=== PATIENT | male | born 1985 | race Caucasian/White ===

== ENCOUNTER 2022-12-03 14:07 | Emergency (ER) | payer SELFPAY ==
[2022-12-03] MEDS ORDERED: CLINDAMYCIN 900MG/D5W 900 MG/50 ML IVPB IV ONE (15:11)
--- NOTE | 2022-12-03 15:39 | ER ---
Nurse's Notes [facility] Name: Jamaal Nguyễn Age: 37 yrs Sex: Male : 1985 Arrival Date: 12/03/2022 Time: 14:09 Bed DIS3 Private MD: Diagnosis: Dental Abscess Presentation: 12/03 14:21 Chief complaint: Patient states: he has had a toothache since Monday that has gotten kc6 worse, with swelling starting on Monday. stated he has been running fever and has a dentist appointment on Monday to have a different one extracted. Coronavirus screen: Vaccine status: Patient reports receiving the 2nd dose of the covid vaccine. At this time, the client does not indicate any symptoms associated with coronavirus-19. Ebola Screen: No symptoms or risks identified at this time. Initial Sepsis Screen: Does the patient meet any 2 criteria? No. Patient's initial sepsis screen is negative. Does the patient have a suspected source of infection? No. Patient's initial sepsis screen is negative. Risk Assessment: Do you want to hurt yourself or someone else? Patient reports no desire to harm self or others. Onset of symptoms was November 28, 2022. 14:21 Method Of Arrival: [facility] 14:21 Acuity: MIREYA 3 kc6 Triage Assessment: 14:23 General: Appears in no apparent distress. comfortable, Behavior is calm, cooperative, kc6 appropriate for age. Pain: Complains of pain in left lower jaw Pain does not radiate. Pain currently is 5 out of 10 on a pain scale. Quality of pain is described as aching, throbbing, Pain began 2-3 days ago. Is continuous, Aggravated by eating, drinking, Also complains of no other associated symptoms. EENT: Reports pain in left lower jaw. Historical: - Allergies: 14:23 No Known Allergies; kc6 - Home Meds: 14:23 Biktarvi [Active]; Lisinopril Oral [Active]; kc6 - PMHx: 14:23 Hypertensive disorder; HIV positive; kc6 - PSHx: 14:23 None; kc6 - Immunization history:: Client reports receiving the 2nd dose of the Covid vaccine, Flu vaccine is not up to date. - Social history:: Smoking status: Patient denies any tobacco usage or history of. Screenin:51 [facility] ED Fall Risk Assessment (Adult) History of falling in the last 3 months, jl7 including since admission No falls in past 3 months (0 pts) Confusion or Disorientation No (0 pts). Abuse screen: Denies threats or abuse. Denies injuries from another. Nutritional screening: No deficits noted. Tuberculosis screening: No symptoms or risk factors identified. Assessment: 15:51 Reassessment: Patient appears in no apparent distress at this time. No changes from jl7 previously documented assessment. Patient and/or family updated on plan of care and expected duration. Pain level reassessed. Vital Signs: 14:21 BP 146 / 94; Pulse 96; Resp 18 S; Temp 97.9(TE); Pulse Ox 98% on R/A; Weight 97.52 kg [facility] (R); Height 5 ft. 9 in. (175.26 cm) (R); Pain 5/10; 15:51 BP 138 / 92; Pulse 93; Resp 15; Temp 97.9(O); Pulse Ox 96% on R/A; jl7 14:21 Body Mass Index 31.75 (97.52 kg, 175.26 cm) [facility] ED Course: 14:09 Patient arrived in ED. am2 14:10 Jason Love PA is PHCP. [facility] 14:10 Alirio Lamas MD is Attending Physician. [facility] 14:23 Triage completed. kc6 14:23 Arm band placed on. kc6 15:02 Raisa Grace, SATYA is Primary Nurse. mb9 15:14 Inserted saline lock: 20 gauge in right forearm, using aseptic technique. em1 15:24 Primary Nurse role handed off by Raisa Grace, SATYA jl7 15:24 Hugo Coleman RN is Primary Nurse. jl7 15:38 Nba Taveras DDS is Referral Physician. jmm 15:43 IV discontinued, intact, bleeding controlled, No redness/swelling at site. Pressure em1 dressing applied. 15:51 Patient has correct armband on for positive identification. jl7 15:51 No provider procedures requiring assistance completed. jl7 15:52 IV discontinued, intact, bleeding controlled, No redness/swelling at site. Pressure jl7 dressing applied. Administered Medications: 15:10 Not Given (Physician Discretion): Clindamycin 600 mg IM once mb9 15:16 Drug: Clindamycin 900 mg Route: IVPB; Infused Over: 30 mins; Site: right forearm; aa5 15:45 Follow up: Response: No adverse reaction; IV Status: Completed infusion jl7 Medication: 15:51 VIS not applicable for this client. jl7 Outcome: 15:39 Discharge ordered by MD. ann 15:51 Discharged to home ambulatory. [facility] 15:51 Condition: stable 15:51 Discharge instructions given to patient, family, Instructed on discharge instructions, follow up and referral plans. medication usage, Demonstrated understanding of instructions, follow-up care, medications, Prescriptions given X 2. 15:53 Patient left the ED. jl7 Signatures: Jason Love PA PA jmm Martinez, Eric em1 Alessandra Roa, RN RN aa5 Hugo Coleman RN RN jl7 Chelsea Blair am2 Natasha Mercer RN RN kc6 Raisa Grace, RN RN mb9 Corrections: (The following items were deleted from the chart) 14:26 14:21 Temp 97.9F Temporal; 97.52 kg Reported; Height 5 ft. 9 in. Reported; BMI: 31.7; kc6 Pain 5/10; kc6
--- NOTE | 2022-12-03 15:39 | EDPHYS ---
Physician Documentation [facility] Name: Jamaal Nguyễn Age: 37 yrs Sex: Male : 1985 Arrival Date: 12/03/2022 Time: 14:09 Bed DIS3 Private MD: ED Physician Alirio Lamas HPI: 12/03 14:37 This 37 yrs old Male presents to ER via Ambulatory with complaints of Toothache, cheek jmm swelling. 14:37 The patient presents with swelling. Onset: The symptoms/episode began/occurred jmm gradually, 2 day(s) ago. Is a 37-year-old male with history of hypertension and HIV that presents emerged part with complaints of swelling to his left cheek. Symptoms began approximately 2 to 3 days ago. Patient states he took leftover antibiotics 1 pill a day with no relief of symptoms. Patient was unable to name the type of antibiotic. Denies fever. Patient has no submandibular pain or swelling. Denies shortness of breath.. Historical: - Allergies: 14:23 No Known Allergies; [facility] - Home Meds: 14:23 Biktarvi [Active]; Lisinopril Oral [Active]; 6 - PMHx: 14:23 Hypertensive disorder; HIV positive; 6 - PSHx: 14:23 None; [facility] - Immunization history:: Client reports receiving the 2nd dose of the Covid vaccine, Flu vaccine is not up to date. - Social history:: Smoking status: Patient denies any tobacco usage or history of. ROS: 14:37 Constitutional: Negative for fever, chills, and weight loss. jm 14:37 ENT: Positive for dental pain. 14:37 All other systems are negative. Exam: 14:37 Constitutional: This is a well developed, well nourished patient who is awake, alert, jmm and in no acute distress. 14:37 Eyes: EOMI, no conjunctival erythema appreciated ENT: Moist Mucus Membranes Neck: Trachea midline, Supple Chest/axilla: Normal chest wall appearance and motion. Cardiovascular: Regular rate and rhythm. No edema appreciated Respiratory: Normal respirations, no respiratory distress appreciated Abdomen/GI: Non distended Back: Normal ROM Skin: General appearance color normal MS/ Extremity: Moves all extremities, no obvious deformities appreciated, no edema noted to the lower extremities Neuro: Awake and alert Psych: Behavior is normal, Mood is normal, Patient is cooperative and pleasant 14:37 Head/face: Noted is swelling, that is moderate, of the left jaw, No submandibular tenderness. Vital Signs: 14:21 BP 146 / 94; Pulse 96; Resp 18 S; Temp 97.9(TE); Pulse Ox 98% on R/A; Weight 97.52 kg kc6 (R); Height 5 ft. 9 in. (175.26 cm) (R); Pain 5/10; 15:51 BP 138 / 92; Pulse 93; Resp 15; Temp 97.9(O); Pulse Ox 96% on R/A; jl7 14:21 Body Mass Index 31.75 (97.52 kg, 175.26 cm) kc6 MDM: 14:37 Patient medically screened. [facility] 15:38 Data reviewed: vital signs, nurses notes. Counseling: I had a detailed discussion with seth the patient and/or guardian regarding: the historical points, exam findings, and any diagnostic results supporting the discharge/admit diagnosis, the need for outpatient follow up, to return to the emergency department if symptoms worsen or persist or if there are any questions or concerns that arise at home. 15:38 ED course: Patient is alert nontoxic in appearance in the ED. I do not Suspect seth Susie's angina. Patient advised to follow-up with oral surgery and otherwise given strict return precautions. Patient understood agrees plan of care.. Administered Medications: 15:10 Not Given (Physician Discretion): Clindamycin 600 mg IM once mb9 15:16 Drug: Clindamycin 900 mg Route: IVPB; Infused Over: 30 mins; Site: right forearm; aa5 15:45 Follow up: Response: No adverse reaction; IV Status: Completed infusion jl7 Disposition: 12/04 15:06 Co-signature as Attending Physician, Alirio Lamas MD. rn Disposition Summary: 12/03/22 15:39 Discharge Ordered Location: Home [facility] Condition: Stable seth Diagnosis - Dental Abscess nerissa Followup: seth - With: Nba Taveras DDS - When: 2 - 3 days - Reason: Recheck today's complaints, Continuance of care, Re-evaluation by your physician Discharge Instructions: - Discharge Summary Sheet seth - Dental Abscess [facility] Forms: - Medication Reconciliation Form [facility] - Thank You Letter [facility] - Antibiotic Education [facility] - Prescription Opioid Use [facility] Prescriptions: - Peridex 0.12 % Mucous Membrane mouthwash - place 15 milliliter by MUCOUS MEMBRANE route 2 times per day after brushing [facility] teeth, swish in mouth for 30 seconds then spit out; 1 bottle; Refills: 0, Product Selection Permitted - Clindamycin HCl 300 mg Oral Capsule - take 1 capsule by ORAL route every 6 hours for 10 days; 40 capsule; Refills: 0, [facility] Product Selection Permitted Signatures: Jason Love PA PA [facility] Alirio Lamas MD MD rn Alessandra Roa RN RN aa5 Natasha Mercer RN RN kc6 Hugo Coleman RN jl7 Raisa Grace RN mb9
[2022-12-03 16:18] VITALS: TEMP 97.9
[2022-12-03 16:24] VITALS: BP 138/92; O2SAT 96
== END 2022-12-03 15:53 | disposition home or self-care (01) ==
LOC: ER 14:07
DX: K04.7 Periapical abscess without sinus (principal); I10 Essential (primary) hypertension; Z21 Asymptomatic human immunodeficiency virus [HIV] infection status
CPT/HCPCS: 96365; 99283

== ENCOUNTER 2024-05-08 23:24 | Emergency (ER) | payer OTHER, SELFPAY ==
[2024-05-09] MEDS ORDERED: HYDROCODONE/APAP 7.5/325 MG TAB ONE (00:38)
--- NOTE | 2024-05-09 01:14 | ER ---
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 Coronavirus screen: At this time, the client does not indicate any symptoms associated with coronavirus-19. Ebola Screen: No symptoms or risks identified at this time. Initial Sepsis Screen: Does the patient meet any 2 criteria? No. Patient's initial sepsis screen is negative. Does the patient have a suspected source of infection? No. Patient's initial sepsis screen is negative. Risk Assessment: Do you want to hurt yourself or someone else? Patient reports no desire to harm self or others. Onset of symptoms was May 08, 2024. 23:37 Method Of Arrival: Ambulatory as6 23:37 Acuity: MIREYA 4 as6 Historical: - Allergies: 23:36 No Known Allergies; as6 - PMHx: 23:36 HIV positive; Hypertensive disorder; as6 - PSHx: 23:36 None; as6 - Immunization history:: Adult Immunizations not up to date. - Infectious Disease History:: Denies. - Social history:: Smoking status: Patient denies any tobacco usage or history of. Screenin/13 00:[address] [facility] ED Fall Risk Assessment (Adult) History of falling in the last 3 months, kd3 including since admission No falls in past 3 months (0 pts) Confusion or Disorientation No (0 pts) Intoxicated or Sedated No (0 pts) Impaired Gait No (0 pts) Mobility Assist Device Used No (0 pt) Altered Elimination No (0 pt) Score/Fall Risk Level 0 - 2 = Low Risk Oriented to surroundings. Abuse screen: Denies threats or abuse. Denies injuries from another. Nutritional screening: No deficits noted. Tuberculosis screening: No symptoms or risk factors identified. Assessment: 00:48 General: Appears in no apparent distress. Behavior is calm, cooperative. Pain: kd3 Complains of pain in face and scalp. Neuro: Level of Consciousness is awake, alert, obeys commands, Oriented to person, place, time, situation. Cardiovascular: Patient's skin is warm and dry. Respiratory: Airway is patent Trachea midline Respiratory effort is even, unlabored, Respiratory pattern is regular, symmetrical. 01:39 General: Appears in no apparent distress. Behavior is calm, cooperative. General: Pt kd3 provided with bilateral wrist splints. . Vital Signs: 05/08 23:36 BP 155 / 100; Pulse 65; Resp 16; Temp 97.2; Pulse Ox 97% ; Weight 88.45 kg; Height 5 as6 ft. 9 in. ; Pain 04/05; 05/09 01:39 BP 125 / 89; Pulse 88; Resp 16; Pulse Ox 99% on R/A; kd3 05/08 23:36 Body Mass Index 28.80 (88.45 kg, 175.26 cm) as6 05/08 23:36 Pain Scale: Adult as6 Maged Coma Score: 05/08 23:59 Eye Response: spontaneous(4). Motor Response: obeys commands(6). Verbal Response: cp oriented(5). Total: 15. ED Course: 23:30 Patient arrived in ED. gm2 23:35 Neeraj Garcia PA is PHCP. cp 23:35 Maury García MD is Attending Physician. cp 23:36 Arm band placed on left wrist. as6 23:38 Triage completed. as6 05/09 00:16 XRAY Wrist LEFT 3 view In Process Unspecified. EDMS 00:16 XRAY Wrist RIGHT 3 view In Process Unspecified. EDMS 00:23 CT Facial Bones W/O Con In Process Unspecified. EDMS 00:26 CT Head Brain wo Cont In Process Unspecified. EDMS 00:35 Lynn Bah, SATYA is Primary Nurse. kd3 00:49 Patient has correct armband on for positive identification. Provided Education on: kd3 Scans . 02:06 No provider procedures requiring assistance completed. Patient did not have IV access kd3 during this emergency room visit. Administered Medications: 00:44 Drug: Hydrocodone-Acetaminophen PO (7.5 mg-325 mg) 1 tabs PO once; RASS on ADMIN: kd3 Combtv4, Very Agttd3, Agttd2, Rstlss1, AlertClm0, Drwsy-1, Lt Sdtn-2, Mod Sdtn-3, Dp Sdtn-4, UnArsble-5 Route: PO; 02:07 Follow up: Response: No adverse reaction; Pain is decreased kd3 Medication: 00:48 VIS not applicable for this client. kd3 Outcome: 01:13 Discharge ordered by . amandeep 02:06 Discharged to home ambulatory, kd3 02:06 Condition: stable 02:06 Discharge instructions given to patient, family, Instructed on discharge instructions, follow up and referral plans. Demonstrated understanding of instructions, follow-up care, medications, Prescriptions given X 1, 02:07 Patient left the ED. kd3 Signatures: Dispatcher [employer] EDMS Neeraj Garcia PA PA cp Slawson, Ashby RN RN as6 Lynn Bah RN RN kd3 Prachi Penaloza 2
--- NOTE | 2024-05-09 01:14 | EDPHYS ---
Physician Documentation [facility] Name: Jamaal Nguyễn Age: 38 yrs Sex: Male : 1985 Arrival Date: 05/08/2024 Time: 23:24 Bed 7 Private MD: ED Physician Maury García HPI: 05/08 23:50 This 38 yrs old Male presents to ER via Ambulatory with complaints of works at [employer] and fell face first, Fall Injury. 23:50 Details of fall: The patient fell and struck a tile surface. Onset: The cp symptoms/episode began/occurred just prior to arrival. 23:50 Associated injuries: The patient sustained injury to the head, contusion, left wrist cp and right wrist, painful injury. Patient reports slip and fall times 2 while at work. Struck face against floor but denies LOC. Historical: - Allergies: 23:36 No Known Allergies; as6 - PMHx: 23:36 HIV positive; Hypertensive disorder; as6 - PSHx: 23:36 None; as6 - Immunization history:: Adult Immunizations not up to date. - Infectious Disease History:: Denies. - Social history:: Smoking status: Patient denies any tobacco usage or history of. ROS: 23:55 Constitutional: HX per HPI cp 23:55 MS/extremity: Positive for pain, of the left wrist and right wrist, Negative for cp decreased range of motion, deformity, paresthesias, 23:55 Neuro: Negative for altered mental status, loss of consciousness, 23:55 All other systems are negative, Exam: 23:59 Constitutional: The patient appears in no acute distress, alert, awake, non-toxic, well cp developed, well nourished, 23:59 Head/face: Noted is abrasion(s), that are mild, swelling, that is mild, of the nose, cp Sinus tenderness, that is mild, is located over the right maxillary sinus and left maxillary sinus, 23:59 Eyes: Periorbital structures: appear normal, Pupils: equal, round, and reactive to light and accomodation, Extraocular movements: intact throughout, Conjunctiva: normal, no exudate, no injection, Lids and lashes: appear normal, bilaterally, 23:59 ENT: External ear(s): are unremarkable, Ear canal(s): are normal, clear, TM's: dullness, bilaterally, Nose: Nasal septum: is midline, no septal hematoma appreciated, bleeding, is not appreciated, Mouth: Lips: moist, Oral mucosa: moist, Posterior pharynx: Airway: no evidence of obstruction, patent, Dental exam: pain, is not appreciated, 23:59 Neck: C-spine: vertebral tenderness, is not appreciated, crepitus, is not appreciated, ROM/movement: pain, is not appreciated, limited range of motion, is not appreciated, nuchal rigidity, is not appreciated, 23:59 Chest/axilla: Inspection: normal, Palpation: is normal, no crepitus, no tenderness, 23:59 Cardiovascular: Rate: normal, 23:59 Respiratory: the patient does not display signs of respiratory distress, Respirations: normal, no use of accessory muscles, no retractions, labored breathing, is not present, Breath sounds: are clear throughout, no decreased breath sounds, no stridor, no wheezing, 23:59 Abdomen/GI: Inspection: abdomen appears normal, Palpation: abdomen is soft and non-tender, in all quadrants, 23:59 Back: pain, is absent, no vertebral tenderness noted, 23:59 Musculoskeletal/extremity: Extremities: grossly normal except: noted in the left wrist and right wrist: tenderness, mild swelling, no deformities and no restriction of AROM, the right hand and left hand Sensation intact. 23:59 Neuro: Orientation: to person, place \T\ time. Mentation: is normal, Vital Signs: 23:36 BP 155 / 100; Pulse 65; Resp 16; Temp 97.2; Pulse Ox 97% ; Weight 88.45 kg; Height 5 as6 ft. 9 in. ; Pain /; 05/09 01:39 BP 125 / 89; Pulse 88; Resp 16; Pulse Ox 99% on R/A; kd3 05/08 23:36 Body Mass Index 28.80 (88.45 kg, 175.26 cm) as6 05/08 23:36 Pain Scale: Adult as6 Maged Coma Score: 05/08 23:59 Eye Response: spontaneous(4). Motor Response: obeys commands(6). Verbal Response: cp oriented(5). Total: 15. MDM: 23:41 Patient medically screened. cp 05/09 00:00 Differential diagnosis: closed head injury, contusion, fracture, multiple trauma, cp sprain. 01:13 Data reviewed: vital signs, nurses notes, radiologic studies, CT scan, plain films, and cp as a result, I will discharge patient. 01:13 I considered the following discharge prescriptions or medication management in the cp emergency department Medications were administered in the Emergency Department. See MAR. Counseling: I had a detailed discussion with the patient and/or guardian regarding the historical points, exam findings, and any diagnostic results supporting the discharge/admit diagnosis, radiology results, the need for outpatient follow up, a family practitioner, to return to the emergency department if symptoms worsen or persist or if there are any questions or concerns that arise at home. Response to treatment: the patient's symptoms have mildly improved after treatment, and as a result, I will discharge patient. 05/09 00:00 Order name: XRAY Wrist LEFT 3 view cp 05/09 00:00 Order name: XRAY Wrist RIGHT 3 view cp 05/09 00:00 Order name: CT Facial Bones W/O Con cp 05/09 00:00 Order name: CT Head Brain wo Cont cp 05/09 01:12 Order name: Wrist Splint: left and right splints; Complete Time: 01:39 cp Administered Medications: 00:44 Drug: Hydrocodone-Acetaminophen PO (7.5 mg-325 mg) 1 tabs PO once; RASS on ADMIN: kd3 Combtv4, Very Agttd3, Agttd2, Rstlss1, AlertClm0, Drwsy-1, Lt Sdtn-2, Mod Sdtn-3, Dp Sdtn-4, UnArsble-5 Route: PO; 02:07 Follow up: Response: No adverse reaction; Pain is decreased kd3 Disposition Summary: 05/09/24 01:13 Discharge Ordered Notes: Location: Home cp Problem: new cp Symptoms: have improved cp Condition: Stable cp Diagnosis - Fall on same level, unspecified cp - Pain in right wrist cp - Pain in left wrist cp - Unspecified injury of head, initial encounter cp Followup: cp - With: Private Physician - When: 2 - 3 days - Reason: Recheck today's complaints Discharge Instructions: - Discharge Summary Sheet cp - Head Injury, Adult cp - Wrist Pain, Adult cp - Form - Excuse from Work, School, or Physical Activity cp Forms: - Medication Reconciliation Form cp - Antibiotic Education cp - Prescription Opioid Use cp - Patient Portal Instructions cp - Leadership Thank You Letter cp Prescriptions: - Ibuprofen 800 mg Oral Tablet - take 1 tablet ORAL route every 8 hours As needed take with food; 30 tablet; cp Refills: 0, Product Selection Permitted Addendum: 05/10/2024 03:48 Co-signature as Attending Physician, Maury García MD I agree with the assessment s p4 and plan of care. I reviewed the patient's care provided by the Advanced Practice Provider and agree with the diagnosis and treatment plan. Signatures: Dispatcher [employer] EDMS Neeraj Garcia PA PA cp Slawson, Ashby, RN RN as6 Lynn Bah RN RN kd3 Maury Gracía MD MD sp4 Corrections: (The following items were deleted from the chart) 05/09 00:01 00:01 Wrist Right 3 View+RAD.RAD.BRZ ordered. EDMS EDMS 00:01 00:01 Facial Bones W/ MPR+CT.RAD.BRZ ordered. EDMS EDMS 00:01 00:01 Head Brain Wo Cont+CT.RAD.BRZ ordered. EDMS EDMS
--- NOTE | 2024-05-10 06:27 | RAD REPORT ---
EXAM DESCRIPTION: CT - Facial Bones W/ Mpr - 05/09/2024 7:10 am CLINICAL HISTORY: Male, 38 years old, fall COMPARISON: None. TECHNIQUE: CT acquisition of the head and face without contrast. Coronal and sagittal reformats prov ided. This exam was performed according to departmental dose-optimization program which includes auto mated exposure control, adjustment of the mA and/or kV according to patient size, and/or use of itera tive reconstruction technique. FINDINGS: SUPPORTIVE DEVICES: None. HEAD: Brain: No evidence of hemorrhage, mass effect, or cerebral edema. CSF Spaces: Normal size and morphology. Incidental cavum septum pellucidum. Skull: The calvarium is intact. Soft tissue: Tiny right Midline occipital scalp hematoma suspected. FACE: Bones: Intact. Soft tissues: Normal. Orbits: The globes and orbits are unremarkable. Sinuses/Mastoids: Trace left maxillary mucosal thickening. Oral cavity: All maxillary and multiple mandibular teeth are absent. Several large carious lesions of residual mandibular teeth. Other: The imaged cervical spine is intact. IMPRESSION: 1. No acute intracranial abnormality. 2. No acute facial bone fracture. 3. Severe odontogenic disease. Electronically signed by: Panchito Aguirre MD 05/09/2024 12:54 AM CDT RP Due to temporary technical issues with the PACS/Fluency reporting system, reports are being signed by the in house radiologists without review as a courtesy to insure prompt reporting. The interpreting radiologist is fully responsible for the content of the report.
--- NOTE | 2024-05-10 07:00 | RAD REPORT ---
EXAM DESCRIPTION: RAD - Wrist Right 3 View - 05/09/2024 12:15 am CLINICAL HISTORY: Male, 38 years old, fall;Pain TECHNIQUE: 3 views of each wrist COMPARISON: None. FINDINGS: No acute fracture or dislocation. Normal osseous mineralization. No significant degenerati ve change. Mild left carpal bossing. Unremarkable soft tissues. IMPRESSION: No acute osseous finding of the wrists. Electronically signed by: Panchito Aguirre MD 05/09/2024 12:51 AM CDT RP Due to temporary technical issues with the PACS/Fluency reporting system, reports are being signed by the in house radiologists without review as a courtesy to insure prompt reporting. The interpreting radiologist is fully responsible for the content of the report.
--- NOTE | 2024-05-10 07:02 | RAD REPORT ---
EXAM DESCRIPTION: RAD - Wrist Left 3 View - 05/09/2024 12:15 am CLINICAL HISTORY: Male, 38 years old, fall;Pain TECHNIQUE: 3 views of each wrist COMPARISON: None. FINDINGS: No acute fracture or dislocation. Normal osseous mineralization. No significant degenerati ve change. Mild left carpal bossing. Unremarkable soft tissues. IMPRESSION: No acute osseous finding of the wrists. Electronically signed by: Panchito Aguirre MD 05/09/2024 12:51 AM CDT RP Due to temporary technical issues with the PACS/Fluency reporting system, reports are being signed by the in house radiologists without review as a courtesy to insure prompt reporting. The interpreting radiologist is fully responsible for the content of the report.
--- NOTE | 2024-05-10 07:04 | RAD REPORT ---
EXAM DESCRIPTION: CT - Head Brain Wo Cont - 05/09/2024 7:09 am CLINICAL HISTORY: Male, 38 years old, fall COMPARISON: None. TECHNIQUE: CT acquisition of the head and face without contrast. Coronal and sagittal reformats prov ided. This exam was performed according to departmental dose-optimization program which includes auto mated exposure control, adjustment of the mA and/or kV according to patient size, and/or use of itera tive reconstruction technique. FINDINGS: SUPPORTIVE DEVICES: None. HEAD: Brain: No evidence of hemorrhage, mass effect, or cerebral edema. CSF Spaces: Normal size and morphology. Incidental cavum septum pellucidum. Skull: The calvarium is intact. Soft tissue: Tiny right Midline occipital scalp hematoma suspected. FACE: Bones: Intact. Soft tissues: Normal. Orbits: The globes and orbits are unremarkable. Sinuses/Mastoids: Trace left maxillary mucosal thickening. Oral cavity: All maxillary and multiple mandibular teeth are absent. Several large carious lesions of residual mandibular teeth. Other: The imaged cervical spine is intact. IMPRESSION: 1. No acute intracranial abnormality. 2. No acute facial bone fracture. 3. Severe odontogenic disease. Electronically signed by: Panchito Aguirre MD 05/09/2024 12:54 AM CDT RP Due to temporary technical issues with the PACS/Fluency reporting system, reports are being signed by the in house radiologists without review as a courtesy to insure prompt reporting. The interpreting radiologist is fully responsible for the content of the report.
== END 2024-05-09 02:07 | disposition home or self-care (01) ==
LOC: ER 23:24
DX: S00.83XA Contusion of other part of head, initial encounter (principal); M25.532 Pain in left wrist; M25.531 Pain in right wrist; W18.30XA Fall on same level, unspecified, initial encounter; Y92.512 Supermarket, store or market as the place of occurrence of the external cause; Y99.0 Civilian activity done for income or pay
CPT/HCPCS: 70450; 70486; 76377; 99283